=== PATIENT | female | born 1990 | race African-American/Black ===

== ENCOUNTER 2022-10-09 07:36 | Emergency (ER) | payer MEDICAID ==
[~2022-10-09] VITALS: Ht 160 cm; Wt 118.0 kg
[2022-10-09] MEDS ORDERED: KETOROLAC 60MG/2ML VIAL IM ONE (08:45)
[2022-10-09] MEDS ORDERED: DEXAMETHASONE 4MG TABLET PO ONE (08:45)
[2022-10-09] MEDS ORDERED: ALBUTEROL (0.083%) 2.5MG/3ML NEB HHN ONE (08:45)
[2022-10-09 09:04] VITALS: BP 124/88
[2022-10-09] MEDS ORDERED: DEXAMETHASONE 4MG TABLET PO NR (09:15)
[2022-10-09] MEDS ORDERED: FLUT1BLS10 IH (09:47)
== END 2022-10-09 10:24 | disposition home or self-care (01) ==
LOC: ER 07:36
DX: M79.10 Myalgia, unspecified site (principal); R09.81 Nasal congestion; J45.909 Unspecified asthma, uncomplicated; Z20.822 Contact with and (suspected) exposure to COVID-19
CPT/HCPCS: 81025; 87426; 87804; 94640; 96372; 99283; C9803; J1885; J8540; Z7610

== ENCOUNTER 2023-10-16 12:46 | Emergency (ER) | payer MEDICAID ==
[~2023-10-16] VITALS: Ht 158.8 cm; Wt 91.0 kg
[~2023-10-16 12:46] MED LIST: FLUT1BLS10 IH
[2023-10-16 13:04] VITALS: BP 135/101; PULSE 98; RESP 16; TEMP 98.7; O2SAT 99
[2023-10-16] MEDS ORDERED: NIRM1TAB PO (15:57)
[2023-10-16] MEDS ORDERED: IBUP-2028 MT (15:57)
== END 2023-10-16 16:02 | disposition home or self-care (01) ==
LOC: ER 12:53
DX: U07.1 COVID-19 (principal); J45.909 Unspecified asthma, uncomplicated; Z79.899 Other long term (current) drug therapy
CPT/HCPCS: 87426; 99283